=== PATIENT | male | born 2000 | race Caucasian/White ===

== ENCOUNTER 2022-09-05 18:11 | Observation (INO) ==
[2022-09-05] MEDS ORDERED: ONDANSETRON INJ 2 MG/ML 2 ML VIAL IV STA (18:24)
[2022-09-05] MEDS ORDERED: fentaNYL citrate 100 MCG/2 ML VIAL IV PRN (18:24)
[2022-09-05] MEDS ORDERED: SODIUM CHLORIDE 0.9% 1000ML 1,000 ML IV ONE ×2 (18:24→19:42)
[2022-09-05] MEDS ORDERED: AMPICILLIN/SULBACTAM SOD 3,000 MG in 0.9 % SODIUM CHLORIDE 100 ML IV STA (18:24)
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
[2022-09-05 18:55] LABS: iSTAT Ionized Calcium 1.21 mmol/l; iSTAT Potassium 3.1 mmol/L (3.3-5.0)
[2022-09-05 19:07] LABS: Basophils # (auto) 0.03 K/uL (0-0.2); Basophils % (auto) 0.3 %; Eosinophils # (auto) 0.02 K/uL (0-0.50); Eosinophils % (auto) 0.2 %; Hematocrit (blood only) 50.2 % (42.0-52.0); Hemoglobin 17.6 g/dl (14.0-18.0); Immature Granulocytes # (auto) 0.03 K/uL (0.01-0.20); Immature Granulocytes % (auto) 0.3 %; Lymphocytes # (auto) 1.71 K/uL (1.2-3.4); Lymphocytes % (auto) 17.6 %; Mean Corpuscular Hemoglobin 31.8 pg (25.0-34.0); Mean Corpuscular Hgb Conc 35.1 g/dL (32.0-36.0); Mean Corpuscular Volume 90.6 fL (80.0-100.0); Mean Platelet Volume 9.8 fL (9.4-12.4); Monocytes # (auto) 0.67 K/uL (0.11-0.59); Monocytes % (auto) 6.9 %; Neutrophils # (auto) 7.27 K/uL (1.40-6.50); Neutrophils % (auto) 74.7 %; Platelet Count 237 K/uL (130-400); RDW Coefficient of Variation 12.4 % (11.5-14.5); RDW Standard Deviation 41.6 fL (36.4-46.3); Red Blood Count 5.54 M/uL (4.70-6.10); White Blood Count 9.73 K/ul (4.8-10.8)
--- NOTE | 2022-09-05 19:12 | XRay Report ---
LEFT FEMUR 4 VIEWS HISTORY: Left femur pain. trauma COMPARISON: None. FINDINGS: There is no fracture or dislocation. Soft tissues are unremarkable. No radiopaque foreign b odies. IMPRESSION: No fracture or dislocation within the left femur. ACT 112: Negative or not required by law. Electronically signed by: Edgardo Ortiz M.D. 09/05/2022 7:10 PM
[2022-09-05] MEDS ORDERED: OPTIRAY 350 100ml IV ONE (19:17)
[2022-09-05 19:19] LABS: Albumin Level 5.1 gm/dl (3.4-5.0); BUN Creatinine Ratio 15.6 (10-20); Bilirubin,Total 1.2 mg/dl (0.2-1.0); Calcium 9.7 mg/dl (8.5-10.1); Creatinine Clr Calc Pharmacy 123.2 ml/min; Est GFR (African American) 113.4 ml/min; Est GFR (Non-African American) 97.9 ml/min; Globulin 2.6 gm/dl (2.5-4.0); Potassium 3.2 mmol/L (3.5-5.1); Total Protein 7.7 gm/dl (6.0-8.3)
--- NOTE | 2022-09-05 19:24 | CT Scan Report ---
CT OF THE CERVICAL SPINE WITHOUT CONTRAST CLINICAL HISTORY: Trauma COMPARISON STUDY: No previous studies for comparison. TECHNIQUE: Helical axial images of the cervical spine were obtained without IV contrast. Sagittal a nd coronal reconstructions were viewed. Automated exposure control was utilized for the study. A do se lowering technique was utilized adhering to the principles of ALARA. FINDINGS: Alignment of the cervical spine is anatomic. Vertebral body heights are maintained. No acut e cervical spine fracture or subluxation is present. There is no prevertebral edema. Facet joints are intact. IMPRESSION: No acute cervical spine fracture or subluxation. ACT 112: Negative or not required by law. Electronically signed by: Scot Weller M.D. 09/05/2022 7:22 PM
--- NOTE | 2022-09-05 19:24 | CT Scan Report ---
CT OF THE HEAD WITHOUT CONTRAST CLINICAL HISTORY: Trauma COMPARISON STUDY: No previous studies for comparison. CT DOSE: TECHNIQUE: Helical axial images of the head were obtained without IV contrast. Automated exposure con trol was utilized for the study. A dose lowering technique was utilized adhering to the principles o f ALARA. FINDINGS: No acute intracranial hemorrhage, midline shift or mass effect is present. The ventricular system is unremarkable. The basal cisterns are patent. No extra-axial collections are present. There are no findings to suggest acute dural sinus thrombosis or acute territorial infarct. No significant calvarial abnormalities are present. Visualized portions of the sinuses and mastoid air cells are edyta ar. IMPRESSION: 1. No acute intracranial findings. 2. No acute calvarial fracture. ACT 112: Negative or not required by law. Electronically signed by: Scot Weller M.D. 09/05/2022 7:14 PM
--- NOTE | 2022-09-05 19:26 | CT Scan Report ---
MAXILLOFACIAL CT CT DOSE: HISTORY: Trauma TECHNIQUE: Multiaxial CT images of the maxillofacial region were performed and reformatted in the cor onal plane without the use of contrast. A dose lowering technique was utilized adhering to the princ iples of PEDRITO. COMPARISON: None. FINDINGS: Soft tissue swelling and a laceration within the chin. There are few punctate densities wit hin the lower lip which could be related to the fractured crown of ADA 23 and 24. The visualized cerv ical spine, mandible, pterygoid plates, lamina papyracea, orbital floors, and zygomatic arches are in tact. Small nondisplaced fractures at the tip of the nasal bones which are age-indeterminate. The orb its are unremarkable. IMPRESSION: 1. Soft tissue swelling and a laceration within the chin. 2. There are few punctate densities within the lower lip which could be related to the fractured [place] of ADA 23 and 24. 3. Age-indeterminate fractures at the tip of the nasal bones. ACT 112: Negative or not required by law. Electronically signed by: Edgardo Ortiz M.D. 09/05/2022 7:24 PM
--- NOTE | 2022-09-05 19:32 | CT Scan Report ---
CHEST CT WITH CONTRAST CT DOSE: HISTORY: Trauma TECHNIQUE: Multiaxial CT images of the chest were performed following the intravenous administration of contrast. A dose lowering technique was utilized adhering to the principles of ALARA. COMPARISON: None. FINDINGS: The abdominal structures will be reported on the same day abdomen and pelvis CT. No acute f ractures identified within the chest. The thyroid gland enhances normally. No pleural or pericardial effusions. The heart is normal in size. No mediastinal hematoma or lymphadenopathy. The mediastinal v ascular structures are within normal limits. No pneumothorax. The central airways are patent. The torres gs are clear. IMPRESSION: No significant abnormality identified within the chest. ACT 112: Negative or not required by law. Electronically signed by: Edgardo Ortiz M.D. 09/05/2022 7:30 PM
--- NOTE | 2022-09-05 19:32 | CT Scan Report ---
CT OF THE ABDOMEN AND PELVIS WITH CONTRAST CLINICAL HISTORY: Trauma. COMPARISON STUDY: None. TECHNIQUE: Following IV administration of 87 mL of Optiray, axial images of the abdomen and pelvis we re obtained from the lung bases to the proximal femurs. Images were reviewed in the axial, sagittal, and coronal planes. IV contrast was administered without complication. Automated exposure control wa s utilized for the study. A dose lowering technique was utilized adhering to the principles of ALARA . CT DOSE: 2486.78 mGy.cm FINDINGS: No hemoperitoneum or pneumoperitoneum is present. There is no evidence for traumatic injury to the liver, spleen, adrenal glands, kidneys or pancreas. There is no biliary or pancreatic ductal dilatation. No peripancreatic or pericholecystic stranding is present. The caliber and wall thickness of small and large bowel are normal. There is no free fluid. Major vasculature is patent. No acute f ractures are present. There is no lymphadenopathy. IMPRESSION: No acute traumatic findings within the abdomen or pelvis. ACT 112: Negative or not required by law. Electronically signed by: Scot Weller M.D. 09/05/2022 7:30 PM
[2022-09-05] MEDS ORDERED: METOPROLOL TARTRATE 1 MG/ML VIAL IV STA (20:02)
[2022-09-05] MEDS ORDERED: POTASSIUM CHLORIDE PWD 20 MEQ PACK PO STA ×2 (20:04→23:27)
[2022-09-05] MEDS ORDERED: cloNIDine HCL 0.1 MG TAB PO ONE (20:05)
[2022-09-05] MEDS ORDERED: LACTATED RINGER'S 1,000 ML IV ONE (20:07)
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
[2022-09-05 20:37] LABS: Appearance Urine Clear (Clear); Bilirubin Urine Negative (Negative); Blood Urine Negative (Negative); Color Urine Yellow; Glucose Urine UA Negative (Negative); Ketones Urine Negative (Negative); Leukocyte Esterase Urine Negative (Negative); Nitrite Urine Negative (Negative); Protein Urine Negative (Negative); Specific Gravity Urine 1.018 (1.000-1.030); Urobilinogen Urine Negative (Negative)
[2022-09-05] MEDS ORDERED: ACETAMINOPHEN 325 MG TAB PO PRN (22:00)
[2022-09-05] MEDS ORDERED: traMADol HCL 50 MG TABLET PO PRN (22:00)
[2022-09-05] MEDS ORDERED: PROMETHAZINE HCL 12.5 MG in SODIUM CHLORIDE 0.9% 50 ML IV PRN (22:00)
[2022-09-05] MEDS ORDERED: ACETAMINOPHEN 325 MG TAB PO STA (22:38)
--- NOTE | 2022-09-06 07:05 | Anesthesiology Consultation ---
Date of Service September 06, 2022 Assessment & Plan Chart Review Chart Review: Acceptable Risk for Surgery and Patient NOT seen in Pre Admission Testing Consults Requested none ASA ASA2 Proposed Anesthesia Anesthesia Type: General History Height/Weight Height: 6 ft 2 in Weight: 82.6 kg Allergies Allergy/AdvReac Type Severity Reaction Status Date / Time No Known Allergies Allergy Verified 09/05/22 19:27 Medications Home Medications Medication Instructions Recorded Confirmed Last Taken No Known Home Medications 09/05/22 09/05/22 Unknown Active Medications Generic Name Dose Route Start Last Admin Trade Name Daniel PRN Reason Stop Dose Admin Lactated Ringer's 1,000 mls @ 60 mls/hr 09/05/22 20:07 09/05/22 22:19 Lr IV 09/06/22 12:46 60 mls/hr .[id number] ONE Administration NPO Date Last Intake of Fluids: 09/05/22 Time Last Intake of Fluids: 23:50 Past Medical History + tobacco smoking ;+ vaping Exercise / Class Metabolic Activity II 4-5 Yardwork/Stairs/Walk up hill Past Anesthesia History No Hx of Anesthesia Complications and No Family Hx of Anesthesia Complications History of PONV No Hx of PONV and No Hx of Motion Sickness Social History Smoking Status: Current every day smoker tobacco type: e-cigarettes and smokeless tobacco Do You Dip or Chew Tobacco: Yes Hx Alcohol Use: No Hx Substance Use: No Physical Exam Vital Signs Last Vital Signs Temp 36.8 C 09/06/22 02:42 Pulse 73 09/06/22 02:42 Resp 16 09/06/22 02:42 BP 107/69 09/06/22 02:42 Pulse Ox 98 09/06/22 02:42 O2 Del Method 09/06/22 02:42 Testing Laboratory Results 09/05/22 18:37 09/05/22 18:37 Urine Color Yellow 09/05/22 19:34 Urine Appearance Clear (Clear) 09/05/22 19:34 Urine pH 7.0 (4.5-7.5) 09/05/22 19:34 Ur Specific [place] 1.018 (1.000-1.030) 09/05/22 19:34 Urine Protein Negative (Negative) 09/05/22 19:34 Urine Glucose (UA) Negative (Negative) 09/05/22 19:34 Urine Ketones Negative (Negative) 09/05/22 19:34 Urine Nitrite Negative (Negative) 09/05/22 19:34 Ur Leukocyte Esterase Negative (Negative) 09/05/22 19:34 Electrocardiogram Date: 09/05/22 Findings: + NSR @ (@ 100;LAE)
[2022-09-06] MEDS ORDERED: MIDAZOLAM HCL 1 MG/ML 2ML VIAL ONE (07:27)
[2022-09-06 07:28] LABS: Basophils # (auto) 0.04 K/uL (0-0.2); Basophils % (auto) 0.4 %; Eosinophils # (auto) 0.09 K/uL (0-0.50); Hematocrit (blood only) 46.4 % (42.0-52.0); Hemoglobin 16.1 g/dl (14.0-18.0); Immature Granulocytes # (auto) 0.02 K/uL (0.01-0.20); Immature Granulocytes % (auto) 0.2 %; Lymphocytes # (auto) 2.94 K/uL (1.2-3.4); Lymphocytes % (auto) 31.2 %; Mean Corpuscular Hemoglobin 31.6 pg (25.0-34.0); Mean Corpuscular Hgb Conc 34.7 g/dL (32.0-36.0); Mean Corpuscular Volume 91.2 fL (80.0-100.0); Mean Platelet Volume 9.8 fL (9.4-12.4); Monocytes # (auto) 0.86 K/uL (0.11-0.59); Monocytes % (auto) 9.1 %; Neutrophils # (auto) 5.48 K/uL (1.40-6.50); Neutrophils % (auto) 58.1 %; Platelet Count 208 K/uL (130-400); RDW Coefficient of Variation 12.6 % (11.5-14.5); RDW Standard Deviation 42.2 fL (36.4-46.3); Red Blood Count 5.09 M/uL (4.70-6.10); White Blood Count 9.43 K/ul (4.8-10.8)
[2022-09-06] MEDS ORDERED: fentaNYL citrate 100 MCG/2 ML VIAL ONE ×3 (07:28→09:40)
[2022-09-06] MEDS ORDERED: PROPOFOL IV EMULSION 10 MG/ML 20 ML VIAL IV ONE ×2 (07:28→08:45)
[2022-09-06] MEDS ORDERED: LIDOCAINE 2% MPF LOCAL 5 ML VIAL INFIL ONE (07:28)
[2022-09-06] MEDS ORDERED: ONDANSETRON INJ 2 MG/ML 2 ML VIAL ONE ×2 (07:28→08:45)
[2022-09-06] MEDS ORDERED: DEXAMETHASONE SOD INJ 4 MG/ML VIAL ONE ×3 (07:28→08:49)
[2022-09-06] MEDS ORDERED: ROCURONIUM BROMIDE 10 MG/ML 5 ML VIAL IV ONE ×2 (07:29→08:45)
[2022-09-06] MEDS ORDERED: SUCCINYLCHOLINE CHLORIDE 20 MG/ML 10 ML VIAL IV ONE (07:29)
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
[2022-09-06] MEDS ORDERED: BUPIVACAINE/EPINEPHRINE 0.5% 1:200,000 1.8 ML CARP ONE (07:53)
[2022-09-06] MEDS ORDERED: BUPIVACAINE/EPINEPHRINE 0.5% MPF 1:200,000 10 ML VIAL ONE (07:53)
[2022-09-06] MEDS ORDERED: CHLORHEXIDINE GLUCONATE 0.12% 480 ML MT ONE (08:02)
[2022-09-06 08:06] LABS: BUN Creatinine Ratio 10.2 (10-20); Calcium 9.4 mg/dl (8.5-10.1); Est GFR (African American) 144.3 ml/min; Est GFR (Non-African American) 124.5 ml/min; Potassium 3.7 mmol/L (3.5-5.1)
[2022-09-06] MEDS ORDERED: ePHEDrine sulfate 50 MG/ML AMP IV PRN (08:06)
[2022-09-06] MEDS ORDERED: PROMETHAZINE HCL 12.5 MG in SODIUM CHLORIDE 0.9% 50 ML IV PRN (08:06)
[2022-09-06] MEDS ORDERED: ATROPINE SULFATE 0.1 MG/ML 10ML SYR IV PRN (08:06)
[2022-09-06] MEDS ORDERED: NALOXONE HCL 0.4 MG/1 ML VIAL/CARP IV PRN (08:06)
[2022-09-06] MEDS ORDERED: FLUMAZENIL 0.1 MG/1 ML 10 ML VIAL IV PRN (08:06)
[2022-09-06] MEDS ORDERED: HYDROmorphone INJ 1 MG/ML SYRINGE IV PRN (08:06)
[2022-09-06] MEDS ORDERED: ONDANSETRON INJ 2 MG/ML 2 ML VIAL IV PRN (08:06)
[2022-09-06] MEDS ORDERED: fentaNYL citrate 100 MCG/2 ML VIAL IV PRN (08:06)
[2022-09-06] MEDS ORDERED: ceFAZolin 330 MG/ML 1 GM VIAL ONE (08:11)
[2022-09-06] MEDS ORDERED: ACETAMINOPHEN 1000 MG/100 ML IV IV ONE (08:11)
[2022-09-06] MEDS ORDERED: SODIUM CHLORIDE 0.9% INJ 10 ML VIAL ONE ×2 (08:17→09:10)
[2022-09-06] MEDS ORDERED: ceFAZolin 2000MG 2,000 MG/15 ML SYR IV ONE (08:32)
[2022-09-06] MEDS ORDERED: LARYING-O-JET KIT (LTA) ONE (08:49)
[2022-09-06] MEDS ORDERED: SUGAMMADEX SODIUM 200 MG/2 ML VIAL IV ONE (09:11)
[2022-09-06] MEDS ORDERED: PHENYLEPHRINE HCL 10 MG/ML VIAL ONE (09:16)
--- NOTE | 2022-09-06 10:15 | Post Operative Brief Note ---
PG Immediate Post Op with CF Date of Surgery September 06, 2022 Pre & Post Diagnosis Operation Date: 09/06/22 07:30 Pre-Op Diagnosis: Complex laceration of face Post-Op Diagnosis: Complex laceration of face I identified the patient and participated in the time-out.: Yes Procedure Operation Date: 09/06/22 07:30 Actual Procedures p Suturing Facial extensive oral /facial 5 cm complex Lacerations Complex laceration of the chin Through-Through muscle with exposed bone there were 2 laceration 1) complex 2 cm laceration under lower lip 2) complex curved 3 cm laceration at the base of the mentalis muscle with exposure of the jaw bone - Td Reaves DMD Surgeon Td Reaves, FABIÁN Paperhanger Assistant none Estimated Blood Loss 5 Findings Consistent with Post-Op Diagnosis Complex laceration of the chin Through-Through muscle with exposed bone there were 2 laceration 1) complex 2 cm laceration under lower lip 2) complex curved 3 cm laceration at the base of the mentalis muscle with exposure of the jaw bone - Td Reaves DMD Anesthesia Type General Complications none
--- NOTE | 2022-09-06 10:39 | Anesthesiology Progress Note ---
Date of Service September 06, 2022 Anesthesia Post Procedure Vital Signs Vital Signs: Temp Pulse Pulse Pulse Resp BP BP 09/06/22 10:25 107 H 15 150/74 H 09/06/22 10:16 36.8 C 91 H 15 138/60 09/06/22 07:34 36.6 C 73 15 143/90 H 09/06/22 07:10 60 09/06/22 02:42 36.8 C 73 16 107/69 09/05/22 22:22 96 H 09/05/22 23:20 37.2 C 09/05/22 21:55 37.7 C H 115 H 18 145/78 H 09/05/22 22:00 37.7 C H 115 H 16 145/78 H 09/05/22 22:00 09/05/22 20:00 115 H 20 151/74 H 09/05/22 19:34 106 H 23 152/85 H 09/05/22 18:32 09/05/22 18:13 110 H 18 168/93 H Pulse Ox Pulse Ox O2 Del Method O2 Del Method O2 Flow Rate 09/06/22 10:25 96 Room Air 09/06/22 10:16 96 Oxymask 7 09/06/22 07:34 98 Room Air 09/06/22 07:10 09/06/22 02:42 98 Room Air 09/05/22 22:22 09/05/22 23:20 Room Air 09/05/22 21:55 99 Room Air 09/05/22 22:00 99 Room Air 09/05/22 22:00 99 Room Air 09/05/22 20:00 97 Room Air 09/05/22 19:34 97 Room Air 09/05/22 18:32 98 Room Air 09/05/22 18:13 99 Room Air Transfer of Care Handoff Completed per policy Notes Mental Status: alert / awake / arousable Patient Amnestic to Procedure: Yes Nausea / Vomiting: adequately controlled Pain: adequately controlled Airway Patency, RR, SpO2: stable & adequate BP & HR: stable & adequate Hydration State: stable & adequate Anesthetic Complications: no major complications apparent
[2022-09-06] MEDS: AMOXICILLIN/CLAVULANATE 875 MG TAB PO SCH ×2 (10:58→16:17)
[2022-09-06] MEDS ORDERED: ARTIFICIAL TEARS OPB PRN (11:21)
[2022-09-06] MEDS ORDERED: PROPARACAINE 0.5% 225 DROPS/15 ML BTL ONE (12:42)
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
--- NOTE | 2022-09-06 13:53 | Hospitalist Progress Note ---
Date of Service September 06, 2022 Assessment & Plan (1) Complex laceration of face: Plan: Situational hypertension Hypokalemia Ongoing tobacco abuse OBS Medical telemetry given elevated BP and tachycardia Analgesia Clonidine as needed Maxillofacial consult Re: Facial laceration (ER provider already in touch with Dr. Reaves. Repair contemplated tomorrow AM.) Augmentin for infection prophylaxis Replace potassium Nicotine patch as needed DVT prophylaxis. SCDs Re: Bleeding facial wound Full code Text document was generated using [employer] voice recognition software. It may contain grammatical or spelling errors. Kindly contact undersigned for clarification of any documentation item in question. Admission and Anticipated Discharge Date Admission Date: September 05, 2022 Results & Data Results & Data ([facility]) Vital Signs (Past 12 Hours) Vital Signs Temp Pulse Pulse Pulse Resp BP Pulse Ox 09/06/22 12:19 36.9 C 70 16 115/72 96 09/06/22 11:47 36.9 C 75 16 113/57 L 95 09/06/22 11:15 36.8 C 89 16 112/58 L 95 09/06/22 10:51 37.0 C 94 H 18 137/77 96 09/06/22 10:45 36.5 C 69 15 132/65 95 09/06/22 10:35 73 12 131/71 95 09/06/22 10:25 107 H 15 150/74 H 96 09/06/22 10:16 36.8 C 91 H 15 138/60 96 09/06/22 07:34 36.6 C 73 15 143/90 H 98 09/06/22 07:10 60 09/06/22 02:42 36.8 C 73 16 107/69 98 O2 Del Method O2 Flow Rate 09/06/22 12:19 Room Air 09/06/22 11:47 Room Air 09/06/22 11:15 Room Air 09/06/22 10:51 Room Air 09/06/22 10:45 Room Air 09/06/22 10:35 Room Air 09/06/22 10:25 Room Air 09/06/22 10:16 Oxymask 7 09/06/22 07:34 Room Air 09/06/22 07:10 09/06/22 02:42 Room Air Laboratory Results Short CBC 09/05/22 09/06/22 Range/Units 18:37 06:48 WBC 9.73 9.43 (4.8-10.8) K/ul Hgb 17.6 16.1 (14.0-18.0) g/dl Hct 50.2 46.4 (42.0-52.0) % Plt Count 237 208 (130-400) K/uL BMP 09/05/22 09/06/22 18:37 06:48 Sodium 138 139 Potassium 3.2 L 3.7 Chloride 102 107 Carbon Dioxide 32 28 BUN 17 9 Creatinine 1.09 0.88 Glucose 104 H 89 Calcium 9.7 9.4 Liver Function 09/05/22 Range/Units 18:37 Total Bilirubin 1.2 H (0.2-1.0) mg/dl AST 38 (13-39) U/L ALT 42 (7-52) U/L Alkaline Phosphatase 65 (34-104) U/L Albumin 5.1 H (3.4-5.0) gm/dl Urine 09/05/22 Range/Units 19:34 Urine Color Yellow Urine Appearance Clear (Clear) Urine pH 7.0 (4.5-7.5) Ur Specific [place] 1.018 (1.000-1.030) Urine Protein Negative (Negative) Urine Glucose (UA) Negative (Negative) Medications Administered Current Inpatient Medications Acetaminophen (Acetaminophen 325 Mg Tab) 650 mg PO Q4H PRN PRN Reason: Pain or Fever Stop: 10/05/22 21:59 Amoxicillin/Clavulanate Potassium (Amoxicillin/Clavulanate 875 Mg Tab) 1 tab PO BIDM SUPA Stop: 09/16/22 07:59 Last Admin: 09/06/22 10:58 Dose: 1 tab Artificial Tears (Artificial Tears) 2 drops OPB Q15M PRN PRN Reason: irritation in eyes Stop: 10/06/22 11:20 Promethazine HCl 12.5 mg/ (Sodium Chloride) 50.5 mls @ 202 mls/hr IV Q6H PRN PRN Reason: Nausea And Vomiting Stop: 10/05/22 21:59 Tramadol HCl (Tramadol Hcl 50 Mg Tablet) 25 - 50 mg PO Q4H PRN PRN Reason: Pain Stop: 10/05/22 21:59 (1) Complex laceration of face Encounter type: initial encounter Qualified Code(s): S01.91XA - Laceration without foreign body of unspecified part of head, initial encounter
[2022-09-06] MEDS ORDERED: ERYTHROMYCIN OP OINT 5 MG/GM 3.5 GM TUBE OPL ONE (15:25)
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
--- NOTE | 2022-09-06 19:41 | Operative Report ---
PG Post Operative Report Pre & Post Diagnosis Operation Date: 09/06/22 07:30 Pre-Op Diagnosis: Complex laceration of face Post-Op Diagnosis: Complex laceration of face I identified the patient and participated in the time-out.: Yes Procedure Operation Date: 09/06/22 07:30 Actual Procedures p Suturing Facial Lacerations - Td Reaves, FABIÁN Surgeon Td Reaves, FABIÁN Helicopter Pilot none Estimated Blood Loss 5 Findings Consistent with Post-Op Diagnosis Specimens none Drains none Anesthesia Type General Complications None Indications complex oral/facial laceration chin Description of Procedure Diagnosis: ICD 10 S01.81XA The repair of a 2 cm complex laceration involving the lower lip and oral mucosal tissue . The second laceration was also a complex very irregular 4 cm laceration of the chin with an associated degloving laceration of the mental aspect of the anterior mandible. Procedure: CPT 50183 Repair of a 6 cm complex oral/facial laceration of the chin and lower lip area. Once cleared for surgery general anesthesia was achieved, the eyes were protected by the anesthesia dept criteria. A time out was take for patient ID, equipment and position verification once all agreed the procedure began. Local anesthesia was given into the area using Marcaine with a vasoconstrictor (appox. 5 ml ). Once a surgical level of anesthesia was obtained and the local anesthesia was given time for the blocks the surgery was started. I turned my attention to the 2 cm oral mucosal lacerations of the anterior mucobuccal fold. There were 2 laceration the 4 cm mucosal and a larger 3cm degloving through- through laceration of the anterior chin bone. There comminuted with skin laceration under the lower lip and a curved laceration in the chin (mental ) area. The skin and oral mucosal was prepped in the usually manner, Peridex was used intra oral as well. Facial laceration repair: The repair of a 2 cm complex laceration involving the lower lip and oral mucosal tissue . The second laceration was also a complex very irregular 4 cm laceration of the chin with an associated degloving laceration of the mental aspect of the anterior mandible. I reprepped the laceration and irrigated with an NS then turned my attention to the laceration. 2 cm complex laceration involving the lower lip and oral mucosal tissue . The complex through-through lacerations were approximately 5-6 cm in total length. They were very irregular and deep, the muscle was exposed as was the bone. I used an electrocautery instrument and cauterized any bleeders. The wound was irrigated and scrubbed. I then inspected the bone and could find no displacement and excellent plate stability. I could not find and fractured teeth fragments w/in the soft tissues. Please note # 23 and 24 had incisal edge chips--the teeth were stable. The closure of the laceration was now started using 6-0 Vicryl suture to line up the deep muscles, periosteum and oral mucosal tissue. Once I had good oral/muscle closure I turned my attention to the skin and sub Q tissue closure. The SubQ was closed with a 6-0 Vicryl once I had excellent deep closure I stated the skin closure. The skin was closed with a 6-0 nylon suture. A very nice cosmetic closure of the irregular lacerations was achieved. Steri Strips was placed. Once the case was completed I inspected the sites to insure all bleeding was controlled. The patient was allowed to awake from the anesthesia. Once full awake the anesthesia tube was removed and the patient was taken to the recovery room with all vital sign stable. The patient tolerated the surgery very well. I will follow the patient in my office, Rx and instructions will be given upon discharge. I reviewed the post op management with his mother Follow up Sep 17 at 2 pm - suture removal I attest to the content of the Intraoperative Record and any orders documented therein. Any exceptions are noted below.
--- NOTE | 2022-09-07 05:51 | Electrocardiogram Report ---
Test Reason : Blood Pressure : / mmHG Vent. Rate : 100 BPM Atrial Rate : 100 BPM P-R Int : 164 ms QRS Dur : 082 ms QT Int : 324 ms P-R-T Axes : 072 082 043 degrees QTc Int : 417 ms Normal sinus rhythm Possible Left atrial enlargement Borderline ECG No previous ECGs available Confirmed by Nithin Otero ([id number]) on 09/07/2022 5:51:07 AM Referred By: REFERRED SELF Confirmed By:Nithin Otero
== END 2022-09-06 16:45 | disposition home or self-care (01) ==
LOC: 2N 18:11 → ED 18:11 → 2N 21:32